=== PATIENT | female | born 2000 | race Caucasian/White ===

== ENCOUNTER 2018-05-16 13:47 | Emergency (ER) | payer MEDICAID, MEDICARE ==
[~2018-05-16] VITALS: Ht 152.4 cm; Wt 67.3 kg
[2018-05-16 14:01] VITALS: BP 126/77
[2018-05-16] MEDS ORDERED: IBUPROFEN 800 MG TAB PO ONE (14:05)
[2018-05-16] MEDS ORDERED: IBUPROFEN 800 MG TAB ONE (14:13)
[2018-05-16 16:10] VITALS: BP 119/82
== END 2018-05-16 16:10 | disposition home or self-care (01) ==
LOC: MED 13:47
DX: J06.9 Acute upper respiratory infection, unspecified (principal)
CPT/HCPCS: 71046; 81002; 81025; 99283

== ENCOUNTER 2019-07-30 22:07 | Emergency (ER) | payer SELFPAY ==
[~2019-07-30] VITALS: Ht 149.9 cm; Wt 76.2 kg
[2019-07-30 22:10] VITALS: BP 102/65
--- NOTE | 2019-07-30 22:13 | NUR ---
TO LOBBY A/W BED AMBULATORY
--- NOTE | 2019-07-30 23:53 | NUR ---
pt ambulated to bed 05
--- NOTE | 2019-07-30 23:55 | NUR ---
DR. PEREZ AT BEDSIDE EXAMINING PT
[2019-07-31] MEDS ORDERED: IBUPROFEN 600 MG TAB PO ONE (00:05)
[2019-07-31] MEDS ORDERED: CYCLOBENZAPRINE 10 MG TAB PO ONE (00:05)
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
[2019-07-31] MEDS ORDERED: MORPHINE SULFATE 4 MG/ML SYR IM ONE (00:55)
[2019-07-31 01:28] VITALS: BP 106/66
--- NOTE | 2019-07-31 01:29 | NUR ---
DCPatient discharged with v/s stable. Written and verbal after care instructions given and explained. Patient alert, oriented and verbalized understanding of instructions. Ambulatory with steady gait. All questions addressed prior to discharge. ID band removed. Patient advised to follow up with PMD. Rx of FLEXERIL AND IBUPROFEN given. Patient educated on indication of medication including possible reaction and side effects. Opportunity to ask questions provided and answered.
== END 2019-07-31 01:29 | disposition home or self-care (01) ==
LOC: MED 22:07
DX: S29.019A Strain of muscle and tendon of unspecified wall of thorax, initial encounter (principal); X58.XXXA Exposure to other specified factors, initial encounter; Y93.89 Activity, other specified; Y92.89 Other specified places as the place of occurrence of the external cause; Y99.8 Other external cause status
CPT/HCPCS: 96372; 99283; J2270

== ENCOUNTER 2023-09-29 19:16 | Emergency (ER) | payer SELFPAY ==
[~2023-09-29] VITALS: Ht 149.9 cm; Wt 64.9 kg
[2023-09-29 19:33] VITALS: BP 114/74; PULSE 117; RESP 22; TEMP 101.6; O2SAT 96
[2023-09-29] MEDS: ACETAMINOPHEN 325 MG TAB PO ONE (19:51)
[2023-09-29] MEDS ORDERED: BENZ-300 PO (20:18)
[2023-09-29] MEDS ORDERED: CEPH-588 PO (20:18)
[2023-09-29] MEDS ORDERED: ACET-10509 PO (20:19)
[2023-09-29 20:28] LABS: BILIRUBIN,URINE 1+ (NEGATIVE); BLOOD, URINE 3+ (NEGATIVE); LEUKOCYTE ESTERASE ,URINE 2+ (NEGATIVE); NITRITE, URINE NEGATIVE (NEGATIVE); PROTEIN,URINE 2+ (NEGATIVE); UGLUCOSE NEGATIVE (NEGATIVE); UROBILINOGEN,URINE 0.2 EU/dL (0.2 - 1)
[2023-09-29 20:33] LABS: FLU A ANTIGEN negative (NEGATIVE); FLU B ANTIGEN negative (NEGATIVE)
[2023-09-29 20:40] LABS: APPEARANCE,URINE CLOUDY (CLEAR); COLOR,URINE AMBER (YELLOW)
[2023-09-29 20:41] LABS: BACTERIA,URINE 10-30 (MOD) /HPF (None Seen); MUCUS,URINE 2+ /LPF (None Seen); RBC,URINE 11-20 (MOD) /HPF (0-5); SQUAMOUS EPITHELIAL CELL,UR 4-10 (MOD) /LPF (0-3 (FEW)); WBC,URINE 20-60 /HPF (0-5)
[2023-09-29 20:45] LABS: ICTOTEST NEGATIVE (NEGATIVE)
== END 2023-09-29 21:16 | disposition home or self-care (01) ==
LOC: MED 19:16
DX: J02.9 Acute pharyngitis, unspecified (principal); N39.0 Urinary tract infection, site not specified; R11.2 Nausea with vomiting, unspecified; Z20.822 Contact with and (suspected) exposure to COVID-19; Z79.899 Other long term (current) drug therapy
CPT/HCPCS: 81001; 81025; 86308; 87081; 87086; 87186; 99283